=== PATIENT | male | born 1960 | race Native Hawaiian/Other Pacific Islander ===

== ENCOUNTER 2016-09-12 09:28 | Emergency (ER) | payer OTHER ==
[~2016-09-12] VITALS: Ht 180.3 cm; Wt 122.5 kg
[~2016-09-12 09:28] MED LIST: ROXICODONE15 M1 PO
[2016-09-12 11:17] LABS: PLATELET COUNT 241 K/uL (142-355)
[2016-09-12 11:27] LABS: POTASSIUM 4.3 mmol/L (3.6-5.2); SODIUM 136 mmol/L (136-145)
[2016-09-12 12:17] VITALS: BP 175/85; TEMP 97.3
== END 2016-09-12 12:22 | disposition home or self-care (01) ==
LOC: ED 09:28
DX: I10 Essential (primary) hypertension (principal); R82.99 Other abnormal findings in urine
CPT/HCPCS: 36415; 80048; 80307; 81000; 85027; 87086; 87088; 96372; 99283; G0479; J1885

== ENCOUNTER 2016-10-15 13:45 | Outpatient (CLI) | payer OTHER | END 2016-10-15 19:17 | disposition home or self-care (01) | LOC: RAD 13:45 | DX: M54.2 Cervicalgia (principal) ==

== ENCOUNTER → 2016-12-30 18:24 | Outpatient (CLI) | payer OTHER | END | disposition home or self-care (01) | LOC: AMB 18:24 | DX: W19.XXXA Unspecified fall, initial encounter (principal) ==

== ENCOUNTER 2017-01-03 13:06 | Emergency (ER) | payer OTHER ==
[~2017-01-03] VITALS: Ht 180.3 cm; Wt 124.7 kg
[2017-01-03 13:38] VITALS: BP 153/92; TEMP 98
== END 2017-01-03 15:41 | disposition home or self-care (01) ==
LOC: ED 13:06
DX: M54.89 Other dorsalgia (principal); G89.29 Other chronic pain; S33.141A Dislocation of L4/L5 lumbar vertebra, initial encounter; W17.89XA Other fall from one level to another, initial encounter; Y93.89 Activity, other specified; Y92.89 Other specified places as the place of occurrence of the external cause
CPT/HCPCS: 80307; 99283; G0479

== ENCOUNTER 2017-02-03 10:13 | Outpatient (CLI) | payer OTHER | END 2017-02-03 11:15 | disposition home or self-care (01) | LOC: MRI 10:13 | DX: R20.0 Anesthesia of skin (principal) ==

== ENCOUNTER → 2018-07-08 11:59 | Outpatient (CLI) | payer OTHER | END | disposition home or self-care (01) | LOC: AMB 11:59 | DX: R55 Syncope and collapse (principal) ==

== ENCOUNTER 2021-12-03 11:19 | Emergency (ER) | payer OTHER ==
[~2021-12-03] VITALS: Ht 180.3 cm; Wt 114.3 kg
[2021-12-03 11:23] VITALS: TEMP 98.4
[2021-12-03 11:51] LABS: PLATELET COUNT 171 K/uL (142-355)
[2021-12-03 11:59] LABS: POTASSIUM 3.6 mmol/L (3.6-5.2)
[2021-12-03 15:45] VITALS: BP 128/74
== END 2021-12-03 15:50 | disposition home or self-care (01) ==
LOC: ED 11:19
PROVIDERS: Emergency Medicine Emergency Medical Services
DX: S00.03XA Contusion of scalp, initial encounter (principal); Y93.89 Activity, other specified; Y92.89 Other specified places as the place of occurrence of the external cause; W19.XXXA Unspecified fall, initial encounter; F19.10 Other psychoactive substance abuse, uncomplicated
CPT/HCPCS: 80053; 80307; 81002; 84484; 85027; 93005; 96360; 99284; Q9963

== ENCOUNTER 2021-12-05 17:50 | Emergency (ER) | payer OTHER ==
[~2021-12-05] VITALS: Ht 180.3 cm; Wt 114.3 kg
[2021-12-05 19:47] LABS: PLATELET COUNT 152 K/uL (142-355)
[2021-12-05 21:15] VITALS: BP 112/63; TEMP 98.7
== END 2021-12-05 21:20 | disposition home or self-care (01) ==
LOC: ED 17:50
PROVIDERS: Family Medicine
DX: F19.129 Other psychoactive substance abuse with intoxication, unspecified (principal); E86.0 Dehydration; W01.198A Fall on same level from slipping, tripping and stumbling with subsequent striking against other object, initial encounter; Y92.89 Other specified places as the place of occurrence of the external cause
CPT/HCPCS: 80053; 80307; 80320; 81002; 82550; 85027; 99283